=== PATIENT | female | born 1980 | race Caucasian/White ===

== ENCOUNTER 2017-05-27 13:06 | Emergency (ER) | payer MEDICAID ==
[2017-05-27 13:28] LABS: ABSOLUTE LYMPHOCYTES (AUTO) 1.6 10^3/uL (0.5-4.7); ABSOLUTE MONOCYTES (AUTO) 1.3 10^3/uL (0.1-1.4); ABSOLUTE NEUT (AUTO) 13.1 10^3/uL (1.7-8.2); BASOPHILS % (AUTO) 0.1 % (0-2); HEMOGLOBIN 13.6 g/dL (12.0-15.5); LYMPHOCYTES % (AUTO) 9.9 % (13-45); MEAN CORPUSCULAR HEMOGLOBIN 35.9 pg (27.0-33.4); MEAN CORPUSCULAR HGB CONC 34.1 g/dL (32.0-36.0); MEAN CORPUSCULAR VOLUME 105 fl (80-97); MONOCYTES % (AUTO) 8.3 % (3-13); PLATELET COUNT 292 10^3/uL (150-450); RED CELL DISTRIBUTION WIDTH 14.9 % (11.5-14.0); SEGMENTED NEUTROPHILS % (AUTO) 81.7 % (42-78); TOTAL CELLS COUNTED % (AUTO) 100 %
[2017-05-27] MEDS: NORMAL SALINE 1000 ML 1,000 ML IV PRN ×2 (13:40→13:41)
[2017-05-27 13:49] LABS: ALANINE AMINOTRANSFERASE 38 U/L (9-52); ALBUMIN 4.2 g/dL (3.5-5.0); ALKALINE PHOSPHATASE 69 U/L (38-126); ANION GAP 9 (5-19); ASPARTATE AMINO TRANSFERASE 17 U/L (14-36); BILIRUBIN,DIRECT 0.2 mg/dL (0.0-0.4); BILIRUBIN,TOTAL 0.4 mg/dL (0.2-1.3); BLOOD UREA NITROGEN 18 mg/dL (7-20); CALCIUM 10.2 mg/dL (8.4-10.2); CARBON DIOXIDE 29 mmol/L (22-30); CHLORIDE 98 mmol/L (98-107); GLUCOSE 164 mg/dL (75-110); SODIUM 136.4 mmol/L (137-145); TOTAL PROTEIN 6.2 g/dL (6.3-8.2)
[2017-05-27] MEDS ORDERED: MORPHINE SULFATE 10 MG/ML INJ IV ONE (14:02)
--- NOTE | 2017-05-27 14:04 | ER Document Report ---
ED General - General Chief Complaint: Vaginal Bleeding Stated Complaint: VAGINAL BLEEDING Time Seen by Provider: 05/27/17 13:13 Mode of Arrival: Medic Information source: Patient Notes: 36-year-old female was an extremely unfortunate history of cancer initially breast cancer at the age of 19 that had metastasized to extensive organs and had a gamma knife attempted procedure yesterday for brain mass that has since enlarged 2 cm presents with complaints of sudden vaginal bleeding, patient was bleeding and started over the past 6 hours multiple large clots were noted. Patient notes cramping which has since resolved. Patient notes she has not bled here. Patient did have cervical cancer which was treated with radiation therapy. Patient has an appointment with her oncologist on Monday TRAVEL OUTSIDE OF THE [place] IN LAST 30 DAYS: No - HPI Onset: Just prior to arrival Onset/Duration: Sudden Quality of pain: Cramping Severity: Mild Pain Level: 1 Associated symptoms: Other Exacerbated by: Denies Relieved by: Denies Similar symptoms previously: Yes Recently seen / treated by doctor: Yes - Related Data Allergies/Adverse Reactions: Penicillins Allergy (Verified 05/27/17 13:28) cillins Allergy (Uncoded 05/27/17 13:28) Past Medical History - Social History Smoking Status: Never Smoker Cigarette use (# per day): No Chew tobacco use (# tins/day): No Smoking Education Provided: No Frequency of alcohol use: None Drug Abuse: None Family History: Reviewed & Not Pertinent Patient has suicidal ideation: No Patient has homicidal ideation: No Pulmonary Medical History: Reports: Hx Asthma Neurological Medical History: Reports: Hx Migraine Renal/ Medical History: Denies: Hx Peritoneal Dialysis Past Surgical History: Reports: Hx Breast Surgery - L lumpectomy, Hx Gynecologic Surgery - ectopic preg, Hx Neurologic Surgery - brain, Hx Orthopedic Surgery - L knee, Hx Tubal Ligation - Immunizations Hx Diphtheria, Pertussis, Tetanus Vaccination: Yes Review of Systems - Review of Systems Notes: REVIEW OF SYSTEMS: CONSTITUTIONAL : Denies fever, chills, or sweats. Denies recent illness. EENT: Denies eye, ear, throat, or mouth pain or symptoms. Denies nasal or sinus congestion or discharge. Denies throat, tongue, or mouth swelling or difficulty swallowing. CARDIOVASCULAR: Denies chest pain. Denies palpitations or racing or irregular heart beat. Denies ankle edema. RESPIRATORY: Denies cough, cold, or chest congestion. Denies shortness of breath, difficulty breathing, or wheezing. GASTROINTESTINAL: Denies abdominal pain or distention. Denies nausea, vomiting , or diarrhea. Denies blood in vomitus, stools, or per rectum. Denies black, tarry stools. Denies constipation. GENITOURINARY: Denies difficulty urinating, painful urination, burning, frequency, blood in urine, or discharge. FEMALE GENITOURINARY: Significant vaginal bleeding MUSCULOSKELETAL: Denies back or neck pain or stiffness. Denies joint pain or swelling. SKIN: Denies rash, lesions or sores. HEMATOLOGIC : Denies easy bruising or bleeding. LYMPHATIC: Denies swollen, enlarged glands. NEUROLOGICAL: Denies confusion or altered mental status. Denies passing out or loss of consciousness. Denies dizziness or lightheadedness. Denies headache. Denies weakness or paralysis or loss of use of either side. Denies problems with gait or speech. Denies sensory loss, numbness, or tingling. Denies seizures. PSYCHIATRIC: Denies anxiety or stress. Denies depression, suicidal ideation, or homicidal ideation. ALL OTHER SYSTEMS REVIEWED AND NEGATIVE. PHYSICAL EXAMINATION: GENERAL: Chronically ill appearing much older than stated age HEAD: Atraumatic, normocephalic. EYES: Pupils equal round and reactive to light, extraocular movements intact, conjunctiva are normal. ENT: Nares patent, oropharynx clear without exudates. Moist mucous membranes. NECK: Normal range of motion, supple without lymphadenopathy LUNGS: Breath sounds clear to auscultation bilaterally and equal. No wheezes rales or rhonchi. HEART: Regular rate and rhythm without murmurs ABDOMEN: Soft, nontender, nondistended abdomen. No guarding, no rebound. No masses appreciated. Female : BILLET HEATER performed the pelvic examination, he noted no obvious scarring no masses there was no active bleeding noted. Musculoskeletal: Normal range of motion, no pitting or edema. No cyanosis. NEUROLOGICAL: Cranial nerves grossly intact. Normal speech, normal gait. Normal sensory, motor exams PSYCH: Normal mood, normal affect. SKIN: Warm, Dry, normal turgor, no rashes or lesions noted. Dictation was performed using [employer] voice recognition software Physical Exam - Vital signs Vitals: Temp Pulse Resp BP Pulse Ox 98 F 100 19 133/96 H 100 05/27/17 13:15 05/27/17 13:15 05/27/17 13:15 05/27/17 13:15 05/27/17 13:15 Course - Re-evaluation Re-evalutation: 05/27/17 14:03 Dr Latoya gonzalez contacted. 05/27/17 16:48 After pelvic examination was performed no active bleeding was noted, it is noted patient's vital signs were stable, that her hemoglobin was stable, she was given 2 bags of IV fluids nonetheless, overall the patient looks well in regards to her extensive history of cancer, I did explain to her that even though the findings today note no abnormality she must follow-up with her oncologist which she states she will. Patient states that she wishes to go home immediately and that she feels much better however given her history of cancer I have very high suspicion that she may have involvement of the cervix yet again After performing a Medical Screening Examination, I estimate there is LOW risk for ACUTE APPENDICITIS, BOWEL OBSTRUCTION, ACUTE CHOLECYSTITIS, PERFORATED DIVERTICULITIS, INCARCERATED HERNIA, PANCREATITIS, PELVIC INFLAMMATORY DISEASE, PERFORATED ULCER, ECTOPIC , or TUBO-OVARIAN ABSCESS, thus I consider the discharge disposition reasonable. Also, there is no evidence or peritonitis , sepsis, or toxicity. I have reevaluated this patient multiple times and no significant life threatening changes are noted. The patient and I have discussed the diagnosis and risks, and we agree with discharging home with close follow-up with the understanding that symptoms and presentations can change. We also discussed returning to the Emergency Department immediately if new or worsening symptoms occur. We have discussed the symptoms which are most concerning (e.g., bloody stool, fever, changing or worsening pain, vomiting) that necessitate immediate return. - Vital Signs Vital signs: Temp Pulse Resp BP Pulse Ox 98 F 100 24 H 138/94 H 93 05/27/17 13:15 05/27/17 13:15 05/27/17 15:01 05/27/17 15:01 05/27/17 15:01 - Laboratory Result Diagrams: 05/27/17 13:13 05/27/17 13:13 Laboratory results interpreted by me: 05/27/17 05/27/17 13:13 13:13 WBC 16.0 H MCV 105 H MCH 35.9 H RDW 14.9 H Seg Neutrophils % 81.7 H Lymphocytes % 9.9 L Absolute Neutrophils 13.1 H Sodium 136.4 L Creatinine 0.49 L Glucose 164 H Total Protein 6.2 L Discharge - Discharge Clinical Impression: Vagina bleeding, History of cervical cancer Condition: Stable Disposition: HOME, SELF-CARE Instructions: Vaginal Bleeding ([facility]) Additional Instructions: You must follow-up with your physician immediately, return if there are any other concerns at all
[2017-05-27 15:17] VITALS: BP 138/94
--- NOTE | 2017-05-27 17:08 | CONSULTATION REPORT E ---
Consultation Report NAME: TROY HATHAWAY : 1980 AGE: 36Y DATE: 05/27/2017 TO: JORGE ROSE M.D. FROM: Rashad CHIN, Requesting Physician CHIEF COMPLAINT: Vaginal bleeding. REASON FOR CONSULTATION: I was requested by the emergency room physician to see this patient because of her chief complaint of vaginal bleeding. HISTORY OF PRESENT ILLNESS: She presented to the emergency room with a several hour history of passing large clots. She has a more involved history. She is 36 years old, and at age 19 she was diagnosed with breast cancer which was treated with lumpectomy. She has had no further problems related to that. Approximately 21 months ago she was diagnosed with cervical cancer which was treated in [place] with chemotherapy. She was receiving regular follow up examinations for this. In October of 2016 she developed a seizure and evaluation revealed what was felt to be brain metastasis from her cervical carcinoma. This was treated with radiation. Initially she appeared to get a response in terms of reduction of size of the brain metastases. However, after a month or 2 her seizures did recur and she presently is being followed for that. Her oncologist was planning some localized treatment with gamma rays but this was cancelled because of interval enlargement of the metastases. She is on Keppra for seizures and dexamethasone to reduce brain swelling. On the day of her presentation she developed heavy vaginal bleeding, passing large clots over the course of approximately 6 hours. Her menstrual pattern since her chemotherapy 21 months ago has been light irregular bleeding which was unpredictable. This was the first time she had any heavy bleeding. She has had somewhat nonspecific pelvic discomfort off and on for months which is unchanged. Evaluation in the emergency room did reveal the presence of a vaginal clot and I was consulted for this complaint as well as to perform the pelvic evaluation. At the time of my pelvic exam, there were no clots in the vagina and very minimal pink drainage. No gross lesion could be seen or active bleeding. On palpation there was some distortion of what would have been the area of the cervix, which was palpable more anteriorly and firm, but no exophytic lesion could be appreciated. The exam was uncomfortable for the patient. Vital signs were in the normal range as well as her hemoglobin and hematocrit. She normally has some unsteadiness on her feet, which she relates to the Keppra medication. ASSESSMENT: 1. 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 2. History of breast carcinoma. 3. Vaginal bleeding. PLAN: 1. The findings were shared with the patient and she appeared to have stopped bleeding at this point. It is not certain whether this bleeding cold have come from an occult primary in the uterus or secondary to adhesive process. 2. Indicated to the patient that she may have some additional recurrent bleeding even though she is not bleeding at this time. 3. She does have a routine follow up with her medical oncologist in [place] on 05/30, and she was encouraged to keep this appointment 4. In addition, she was instructed if she has any more problem she needs to keep her oncologist informed as they may request her to come to [place]. 5. She is to continue her regular medications including Keppra, dexamethasone, and esophagitis/gastritis medication. DICTATING PHYSICIAN: JORGE ROSE M.D. [id number] PHY#: [id number] ID: [id number] JOB#: [id number] ACCT: [id number] cc:JORGE ROSE M.D. > MTDD
== END 2017-05-27 15:45 | disposition home or self-care (01) ==
LOC: ER 13:06
DX: N93.9 Abnormal uterine and vaginal bleeding, unspecified (principal); J45.909 Unspecified asthma, uncomplicated; G93.89 Other specified disorders of brain; Z98.890 Other specified postprocedural states; Z85.3 Personal history of malignant neoplasm of breast; Z85.41 Personal history of malignant neoplasm of cervix uteri; Z92.3 Personal history of irradiation; Z88.0 Allergy status to penicillin
CPT/HCPCS: 99284; 96361; 96374; 86900; 86901; 36415; 86850; 84702; 85025; 80053; J2270; J7030